=== PATIENT | female | born 1985 | race Caucasian/White ===

== ENCOUNTER 2020-08-02 17:47 | Emergency (ER) | payer MEDICAID ==
--- NOTE | 2020-08-02 19:44 | EDM.PDOC ---
ED HPI GENERAL MEDICAL PROBLEM - General Chief Complaint: Genitourinary Problem Stated Complaint: VAGINAL DISCOMFORT Time Seen by Provider: 08/02/20 18:02 Source of Information: Reports: Patient, RN Notes Reviewed History Limitations: Reports: No Limitations - History of Present Illness INITIAL COMMENTS - FREE TEXT/NARRATIVE: Patient is a 35-year-old female presenting to the emergency department with complaints of vaginal itching as well as a whitish vaginal discharge with foul odor for the last 2 weeks. She denies any dysuria, however states that if urine gets on the excoriated areas it does burn. She reports that her urine does have a foul smell as well. She does have a history of yeast infections but has not used any [id number] treatments thus far. Denies any possibility of sexually transmitted diseases she is not sexually active currently. - Related Data Allergies Allergy/AdvReac Type Severity Reaction Status Date / Time No Known Allergies Allergy Verified 08/02/20 18:00 Home Meds: Home Meds FLUoxetine HCl [Prozac] 20 mg PO DAILY 08/02/20 [History] lamoTRIgine [Lamotrigine] 50 mg PO DAILY 08/02/20 [History] metroNIDAZOLE [Flagyl] 500 mg PO Q12H 7 Days #13 tab 08/02/20 [Rx] Past Medical History Psychiatric History: Reports: Depression Endocrine/Metabolic History: Reports: Diabetes, Type II Social & Family History - Tobacco Use Tobacco Use Status *Q: Never Tobacco User - Recreational Drug Use Recreational Drug Use: No ED ROS GENERAL - Review of Systems Review Of Systems: Comprehensive ROS is negative, except as noted in HPI. ED EXAM, RENAL/ - Physical Exam Exam: See Below Exam Limited By: No Limitations General Appearance: Alert, WD/WN, No Apparent Distress Respiratory/Chest: No Respiratory Distress, Lungs Clear, Normal Breath Sounds, No Accessory Muscle Use, Chest Non-Tender Cardiovascular: Normal Peripheral Pulses, Regular Rate, Rhythm, No Edema, No Gallop, No JVD, No Murmur, No Rub (Female) Exam: Vaginal Discharge (whitish-terry), Other (excoriation of the labia majora and groin folds.). No: Vaginal Bleeding Neurological: Alert, Oriented, CN II-XII Intact, Normal Cognition, Normal Gait, Normal Reflexes, No Motor/Sensory Deficits Psychiatric: Normal Affect, Normal Mood Skin Exam: Warm, Dry, Intact, Normal Color, No Rash Course - Vital Signs Last Recorded V/S: Last Vital Signs Temp 97.0 F 08/02/20 17:57 Pulse 73 08/02/20 17:57 Resp 16 08/02/20 17:57 BP 169/89 H 08/02/20 17:57 Pulse Ox 100 08/02/20 17:57 - Orders/Labs/Meds Labs: Laboratory Tests 08/02/20 Range/Units 19:10 Urine Color Yellow (Yellow) Urine Appearance Slt cloudy H (Clear) Urine pH 7.0 (5.0-8.0) Ur Specific [place] > or = 1.030 (1.005-1.030) Urine Protein Negative (Negative) Urine Glucose (UA) Negative (Negative) Urine Ketones Negative (Negative) Urine Occult Blood Negative (Negative) Urine Nitrite Negative (Negative) Urine Bilirubin Negative (Negative) Urine Urobilinogen 0.2 (0.2-1.0) Ur Leukocyte Esterase Negative (Negative) Urine RBC 0-5 (0-5) /hpf Urine WBC 0-5 (0-5) /hpf Ur Squamous Epith Cells 0-5 (0-5) /hpf Amorphous Sediment Moderate H (NOT SEEN) /hpf Urine Bacteria Moderate H (FEW) /hpf Urine Mucus Moderate H (FEW) /hpf - Re-Assessments/Exams Free Text/Narrative Re-Assessment/Exam: Is a 35-year-old female presenting to the emergency department with complaints of a 2-week history of vaginal itching, burning, and abnormal discharge. Pelvic exam did show a whitish-miranda vaginal discharge as well as excoriation of the labia majora as well as these surrounding tissues of the groin folds. I have sent a wet prep and urinalysis. 08/02/20 20:33 Wet prep results showed moderate clue cells moderate WBCs and many epis consistent with bacterial vaginosis. Urinalysis was negative for infection. We will start patient on Flagyl for treatment of BV. Discussed that she should not consume alcohol taking this medication. She may use [id number]-izmaeta Lamisil to the areas of irritation for comfort. Discharge instructions as documented. Departure - Departure Time of Disposition: 20:35 Disposition: Home, Self-Care 01 Condition: Good Clinical Impression: Bacterial vaginosis - Discharge Information *PRESCRIPTION DRUG MONITORING PROGRAM REVIEWED*: No *COPY OF PRESCRIPTION DRUG MONITORING REPORT IN PATIENT THIERRY: No Prescriptions: metroNIDAZOLE [Flagyl] 500 mg PO Q12H 7 Days #13 tab Instructions: Bacterial Vaginosis Referrals: Darius Hernandez MD [Primary Care Provider] - Forms: ED Department Discharge Additional Instructions: You were seen in the emergency department today for painful burning, itching, and vaginal discharge for the last 2 weeks. Results of your work-up indicate that you do have bacterial vaginosis. You been started on Flagyl for treatment of this. Take this medication as prescribed. You may purchase gevo-nsd-rieezhx Lamisil cream to apply to the areas of irritation. Refrain from any alcohol consumption while taking this medication as it can make you very ill. If symptoms fail to improve after the course of treatment, recommend follow-up in the clinic. Return to ER as needed. Sepsis Event Note (ED) - Evaluation Sepsis Screening Result: No Definite Risk - Focused Exam Vital Signs: Vital Signs Temp Pulse Resp BP Pulse Ox 08/02/20 17:57 97.0 F 73 16 169/89 H 100
[2020-08-02] MEDS ORDERED: metroNIDAZOLE 500 MG Tab PO ONE (20:34)
== END 2020-08-02 20:46 | disposition home or self-care (01) ==
LOC: JD.ED 17:47
DX: N76.0 Acute vaginitis (principal); B96.89 Other specified bacterial agents as the cause of diseases classified elsewhere; E11.9 Type 2 diabetes mellitus without complications
CPT/HCPCS: 81001; 87210; 87808; 99283; A9270

== ENCOUNTER 2020-10-29 20:56 | Emergency (ER) | payer MEDICAID ==
--- NOTE | 2020-10-29 21:28 | EDM.PDOC ---
ED HPI GENERAL MEDICAL PROBLEM - General Chief Complaint: Abdominal Pain Stated Complaint: UPPER ABDOMINAL PAIN Time Seen by Provider: 10/29/20 21:27 Source of Information: Reports: Patient History Limitations: Reports: No Limitations Upper Abdomen Pain Score (Numeric/FACES): 9 - Related Data Allergies Allergy/AdvReac Type Severity Reaction Status Date / Time No Known Allergies Allergy Verified 08/02/20 18:00 Home Meds: Home Meds FLUoxetine HCl [Prozac] 20 mg PO DAILY 08/02/20 [History] lamoTRIgine [Lamotrigine] 50 mg PO DAILY 08/02/20 [History] Dicyclomine [Bentyl] 20 mg PO TID PRN #20 tab 10/29/20 [Rx] Ondansetron [Zofran ODT] 4 mg PO Q6H PRN #7 tab.dis 10/29/20 [Rx] Past Medical History Psychiatric History: Reports: Depression Endocrine/Metabolic History: Reports: Diabetes, Type II - Infectious Disease History Infectious Disease History: Reports: Chicken Pox Social & Family History - Tobacco Use Tobacco Use Status *Q: Never Tobacco User - Caffeine Use Caffeine Use: Reports: Coffee, Soda, Tea - Recreational Drug Use Recreational Drug Use: No ED ROS GENERAL - Review of Systems Review Of Systems: Comprehensive ROS is negative, except as noted in HPI. ED EXAM, GI/ABD - Physical Exam Exam: See Below Exam Limited By: No Limitations General Appearance: Alert, No Apparent Distress Eyes: Bilateral: Normal Appearance Head: Normocephalic Neck: Normal Inspection, Supple, Non-Tender Respiratory/Chest: No Respiratory Distress, Lungs Clear, Normal Breath Sounds Cardiovascular: Regular Rate, Rhythm, No JVD GI/Abdominal Exam: Normal Bowel Sounds, Soft, Non-Tender, No Organomegaly Back Exam: Normal Inspection. No: CVA Tenderness (L), CVA Tenderness (R) Extremities: Normal Inspection Neurological: Alert, Oriented Psychiatric: Normal Affect, Normal Mood Skin Exam: Warm, Dry, Normal Color Lymphatic: No Adenopathy Course - Vital Signs Text/Narrative:: Better with meds and fluids. Her lab work is all unremarkable. Ultrasound shows no acute disease. I am discharging patient home with a prescription for Bentyl and Zofran. She may take uwqw-syd-avomhym mag citrate and stool softeners as needed. She is to return to emergency department if having fever chills vomiting or worse otherwise follow-up with her PCP for recheck if symptoms continue. Last Recorded V/S: Last Vital Signs Temp 97.4 F 10/29/20 21:14 Pulse 64 10/29/20 21:14 Resp 20 10/29/20 21:14 BP 132/75 10/29/20 21:14 Pulse Ox 98 10/29/20 21:14 - Orders/Labs/Meds Orders: Active Orders 24 hr Category Date Time Status Peripheral IV Care [RC] . DIRECTED Care 10/29/20 21:41 Active Abdomen Ltd [US] Stat Exams 10/29/20 21:41 Taken Sodium Chloride 0.9% [Saline Flush] Med 10/29/20 21:41 Active 10 ml FLUSH ASDIRECTED PRN Peripheral IV Insertion Adult [OM.PC] Routine Oth 10/29/20 21:40 Ordered Medication Orders Sodium Chloride (Sodium Chloride 0.9% 10 Ml Syringe) 10 ml FLUSH ASDIRECTED PRN PRN Reason: Keep Vein Open Last Admin: 10/29/20 22:03 Dose: 10 ml Documented by: TEREZA Labs: Laboratory Tests 10/29/20 10/29/20 10/29/20 Range/Units 22:05 22:05 22:05 WBC 8.09 (3.98-10.04) K/mm3 RBC 4.95 (3.98-5.22) M/mm3 Hgb 14.4 (11.2-15.7) gm/dl Hct 43.4 (34.1-44.9) % MCV 87.7 (79.4-94.8) fl MCH 29.1 (25.6-32.2) pg MCHC 33.2 (32.2-35.5) g/dl RDW Std Deviation 40.1 (36.4-46.3) fL Plt Count 232 (182-369) K/mm3 MPV 11.1 (9.4-12.3) fl Neutrophils % (Manual) 54 (40-60) % Band Neutrophils % 1 (0-10) % Lymphocytes % (Manual) 28 (20-40) % Atypical Lymphs % 0 % Monocytes % (Manual) 10 (2-10) % Eosinophils % (Manual) 6 H (0.7-5.8) % Basophils % (Manual) 1 (0.1-1.2) Platelet Estimate Adequate RBC Morph Comment Normal Sodium 142 (136-145) mEq/L Potassium 3.8 (3.5-5.1) mEq/L Chloride 106 (98-107) mEq/L Carbon Dioxide 26 (21-32) mEq/L Anion Gap 13.8 (5-15) BUN 16 (7-18) mg/dL Creatinine 0.9 (0.55-1.02) mg/dL Est Cr Clr Drug Dosing 84.84 mL/min Estimated GFR (MDRD) > 60 (>60) mL/min BUN/Creatinine Ratio 17.8 (14-18) Glucose 83 (70-99) mg/dL Calcium 9.1 (8.5-10.1) mg/dL Total Bilirubin 0.3 (0.2-1.0) mg/dL AST 12 L (15-37) U/L ALT 33 (14-59) U/L Alkaline Phosphatase 72 (46-116) U/L Total Protein 7.6 (6.4-8.2) g/dl Albumin 4.2 (3.4-5.0) g/dl Globulin 3.4 gm/dL Albumin/Globulin Ratio 1.2 (1-2) Lipase 357 (73-393) U/L Urine Color Yellow (Yellow) Urine Appearance Clear (Clear) Urine pH 7.0 (5.0-8.0) Ur Specific [place] 1.025 (1.005-1.030) Urine Protein Negative (Negative) Urine Glucose (UA) Negative (Negative) Urine Ketones Negative (Negative) Urine Occult Blood Negative (Negative) Urine Nitrite Negative (Negative) Urine Bilirubin Negative (Negative) Urine Urobilinogen 0.2 (0.2-1.0) Ur Leukocyte Esterase Negative (Negative) Urine HCG, Qual (NEGATIVE) 10/29/20 Range/Units 22:05 WBC (3.98-10.04) K/mm3 RBC (3.98-5.22) M/mm3 Hgb (11.2-15.7) gm/dl Hct (34.1-44.9) % MCV (79.4-94.8) fl MCH (25.6-32.2) pg MCHC (32.2-35.5) g/dl RDW Std Deviation (36.4-46.3) fL Plt Count (182-369) K/mm3 MPV (9.4-12.3) fl Neutrophils % (Manual) (40-60) % Band Neutrophils % (0-10) % Lymphocytes % (Manual) (20-40) % Atypical Lymphs % % Monocytes % (Manual) (2-10) % Eosinophils % (Manual) (0.7-5.8) % Basophils % (Manual) (0.1-1.2) Platelet Estimate RBC Morph Comment Sodium (136-145) mEq/L Potassium (3.5-5.1) mEq/L Chloride (98-107) mEq/L Carbon Dioxide (21-32) mEq/L Anion Gap (5-15) BUN (7-18) mg/dL Creatinine (0.55-1.02) mg/dL Est Cr Clr Drug Dosing mL/min Estimated GFR (MDRD) (>60) mL/min BUN/Creatinine Ratio (14-18) Glucose (70-99) mg/dL Calcium (8.5-10.1) mg/dL Total Bilirubin (0.2-1.0) mg/dL AST (15-37) U/L ALT (14-59) U/L Alkaline Phosphatase (46-116) U/L Total Protein (6.4-8.2) g/dl Albumin (3.4-5.0) g/dl Globulin gm/dL Albumin/Globulin Ratio (1-2) Lipase (73-393) U/L Urine Color (Yellow) Urine Appearance (Clear) Urine pH (5.0-8.0) Ur Specific [place] (1.005-1.030) Urine Protein (Negative) Urine Glucose (UA) (Negative) Urine Ketones (Negative) Urine Occult Blood (Negative) Urine Nitrite (Negative) Urine Bilirubin (Negative) Urine Urobilinogen (0.2-1.0) Ur Leukocyte Esterase (Negative) Urine HCG, Qual Negative (NEGATIVE) Meds: Medications Generic Name Dose Route Start Last Admin Trade Name Freq PRN Reason Stop Dose Admin Sodium Chloride 10 ml 10/29/20 21:41 10/29/20 22:03 Sodium Chloride 0.9% 10 Ml Syringe FLUSH 10 ml ASDIRECTED PRN Administration Keep Vein Open Discontinued Medications Generic Name Dose Route Start Last Admin Trade Name Freq PRN Reason Stop Dose Admin Dicyclomine HCl 20 mg 10/29/20 21:43 10/29/20 22:02 Dicyclomine 10 Mg Cap PO 10/29/20 21:44 20 mg ONETIME ONE Administration Sodium Chloride 1,000 mls @ 1,000 mls/hr 10/29/20 21:42 10/29/20 22:02 Normal Saline IV 10/29/20 22:41 1,000 mls/hr ONETIME ONE Administration Ketorolac Tromethamine 30 mg 10/29/20 21:43 10/29/20 22:02 Ketorolac 30 Mg/Ml Sdv IVPUSH 10/29/20 21:44 30 mg ONETIME ONE Administration Departure - Departure Time of Disposition: 23:58 Disposition: Home, Self-Care 01 Condition: Good Clinical Impression: Abdominal pain, Constipation - Discharge Information Instructions: Constipation, Adult, Abdominal Pain, Adult, [id number] Referrals: Roseline Barbosa [employer] [Primary Care Provider] - Forms: ED Department Discharge Additional Instructions: Nuwo-nis-evpymli magnesium citrate and Colace as needed. Increase fiber in diet increase fluid with meals. Follow-up with PCP and/or GI if symptoms continue. Return to emergency department if having fever chills, vomiting or feeling worse. Sepsis Event Note (ED) - Evaluation Sepsis Screening Result: No Definite Risk - Focused Exam Vital Signs: Vital Signs Temp Pulse Resp BP Pulse Ox 10/29/20 21:14 97.4 F 64 20 132/75 98 - My Orders Last 24 Hours: My Active Orders 10/29/20 21:40 Peripheral IV Insertion Adult [OM.PC] Routine 10/29/20 21:41 Peripheral IV Care [RC] . DIRECTED Abdomen Ltd [US] Stat Sodium Chloride 0.9% [Saline Flush] 10 ml FLUSH ASDIRECTED PRN - Assessment/Plan Last 24 Hours: My Active Orders 10/29/20 21:40 Peripheral IV Insertion Adult [OM.PC] Routine 10/29/20 21:41 Peripheral IV Care [RC] . DIRECTED Abdomen Ltd [US] Stat Sodium Chloride 0.9% [Saline Flush] 10 ml FLUSH ASDIRECTED PRN
[2020-10-29] MEDS ORDERED: Sodium Chloride 0.9% 10 ML Syringe FLUSH PRN (21:41)
[2020-10-29] MEDS ORDERED: Sodium Chloride 0.9% 1,000 ML IV ONE (21:42)
[2020-10-29] MEDS ORDERED: Dicyclomine 10 MG Cap PO ONE (21:43)
[2020-10-29] MEDS ORDERED: Ketorolac 30 MG/ML SDV IVPUSH ONE (21:43)
--- NOTE | 2020-10-30 06:51 | US ---
Limited abdominal ultrasound: Multiple real-time images of the upper right abdomen were obtained. Comparison: No prior abdominal imaging is available. Liver contains no focal parenchymal abnormality. Gallbladder is not well distended. No shadowing gallstones or gallbladder wall thickening is seen. No biliary duct dilatation is seen. Right kidney shows no hydronephrosis or mass. Right kidney has a length of 11.5 cm. Pancreas shows no discrete abnormality. Inferior vena cava is not seen. Main portal vein shows normal hepatopedal flow. Impression: 1. No definite abnormality is seen on right upper quadrant abdominal ultrasound as described above. Diagnostic code #1 I agree with preliminary report from [facility], finalized on 10/30/20, 12:35 AM CDT, code 1
== END 2020-10-30 00:17 | disposition home or self-care (01) ==
LOC: JD.ED 20:56
DX: K59.00 Constipation, unspecified (principal); E11.9 Type 2 diabetes mellitus without complications; Z79.899 Other long term (current) drug therapy
CPT/HCPCS: 36415; 76705; 80053; 81003; 81025; 83690; 85007; 85027; 96374; 99284; A9270; J1885; J7030; 99283